=== PATIENT | female | born 1985 | race African-American/Black ===

== ENCOUNTER 2017-01-21 20:38 | Emergency (ER) | payer OTHER ==
[2017-01-21 20:57] VITALS: BP 119/72
--- NOTE | 2017-01-21 21:19 | UC ---
Skin Complaint HPI - HPI Summary HPI Summary: Pt presents with c/o dry, patchy area of skin under left eye. Pt reports that she is new to area and noticed that her skin has been very dry and itchy since moving to the area. Pt has history of eczema - History of Current Complaint Chief Complaint: UCEye Time Seen by Provider: 01/21/17 20:46 Stated Complaint: LEFT EYE COMPLAINT Hx Obtained From: Patient Hx Last Menstrual Period: 01/22/17 ?: No Onset/Duration: Sudden Onset, Lasting Weeks, Still Present, Worse Since - onset Skin Exposure Onset/Duration: Weeks Ago Timing: Constant Onset Severity: Mild Current Severity: Mild Location: Face Alleviating Factor(s): Unknown Associated Signs & Symptoms: Positive: Rash Related History: Possible Reaction to: Environmental Exposure - Allergy/Home Medications Allergies/Adverse Reactions: Allergies Allergy/AdvReac Type Severity Reaction Status Date / Time Penicillins Allergy Severe migranes Verified 01/21/17 20:49 Home Medications: Home Medications Albuterol HFA INHALER* [Ventolin HFA Inhaler*] 2 puff INH Q6H PRN 01/21/17 [ History Confirmed 01/21/17] Drospirenone-Ethinyl Estradiol [Loryna 3-0.02 mg] 1 tab PO DAILY 01/21/17 [ History Confirmed 01/21/17] Review of Systems Constitutional: Negative Skin: Rash Eyes: Negative ENT: Negative Respiratory: Negative Cardiovascular: Negative Gastrointestinal: Negative Genitourinary: Negative Motor: Negative Neurovascular: Negative Musculoskeletal: Negative Neurological: Negative Psychological: Negative Is Patient Immunocompromised?: No All Other Systems Reviewed And Are Negative: Yes PMH/Surg Hx/FS Hx/Imm Hx Previously Healthy: Yes - Surgical History Surgical History: Yes Surgery Procedure, Year, and Place: TONSILLECTOMY. WISDOM THEETH EXTRACTIONS - Family History Known Family History: Positive: Cardiac Disease - Social History Occupation: Employed Full-time Lives: Alone Alcohol Use: Occasionally Substance Use Type: None Smoking Status (MU): Never Smoked Tobacco Have You Smoked in the Last Year: No Physical Exam Triage Information Reviewed: Yes Appearance: Well-Appearing Vital Signs: Initial Vital Signs Temp 98.1 F 01/21/17 20:50 Pulse 70 01/21/17 20:50 Resp 20 01/21/17 20:50 BP 119/72 01/21/17 20:50 Pulse Ox 100 01/21/17 20:50 Vital Signs Reviewed: Yes Eye Exam: Normal Neck exam: Normal Respiratory Exam: Normal Cardiovascular Exam: Normal Musculoskeletal Exam: Normal Neurological Exam: Normal Psychological Exam: Normal Skin Exam: Other - dry , patchy, flaky area ~ 2cm X 2cm under left eye Course/Dx - Differential Diagnoses - Skin Complaint Differential Diagnoses: Eczema, Tinea, Other - Dermatitis - Diagnoses Provider Diagnoses: dermatitis. eczema exacerbation Discharge - Discharge Plan Condition: Stable Disposition: HOME Prescriptions: Hydrocortisone 0.5% OINT* 1 applic TOPICAL BID #1 tube Patient Education Materials: Dermatitis (ED) Referrals: Sherrell Castillo [Medical Doctor] - As Soon As Possible Analy Gonzalez NP [Nurse Practitioner] - If Needed Additional Instructions: Dental referral: Dr. Stan Harrington [address] [place] [address] Our Hours of operation are: Wednesday 7:00 AM 5:00 PM Wednesday 7:00 AM 4:00 PM For an appointment please call [phone]
== END 2017-01-21 21:34 | disposition home or self-care (01) ==
LOC: UCCORT 20:38
DX: L30.8 Other specified dermatitis (principal); Z88.0 Allergy status to penicillin
CPT/HCPCS: 99202; G0463

== ENCOUNTER 2018-08-01 10:38 | Observation (INO) | payer OTHER ==
[2018-08-01] MEDS ORDERED: NS 0.9% 1000 ML** 1,000 ML IV ONE (11:06)
--- NOTE | 2018-08-01 11:09 | ED ---
Neurological HPI - HPI Summary HPI Summary: Patient is a 33 y/o female who presents to the ED c/o LUE numbness. At 6:30 this morning she woke up and noticed that her LUE was numb. Patient initially thought she slept in an awkward position, however the numbness did not resolve. 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 Patient also c/o dull mid-sternal CP rated a 5/10 in severity, and had some numbness and shooting pains down her LLE. She denies any difficulty ambulating or neck pain. She notes that shes had numbness in the past but not to this extent. - History of Current Complaint Chief Complaint: EDChestPainROMI Stated Complaint: NUMBNESS IN LEFT ARM AND CHEST PAIN PER PT Time Seen by Provider: 08/01/18 10:55 Hx Obtained From: Patient Hx Last Menstrual Period: 01/22/17 Onset/Duration: Sudden Onset, Started hours ago - 6:30 this morning, Still Present Timing: Constant Current Severity: Moderate Neurological Deficit Location: LUE, LLE Pain Intensity: 5 Pain Scale Used: 0-10 Numeric Character: Weak, Numbness/Tingling Aggravating: Nothing Alleviating: Nothing Associated Signs and Symptoms: Negative: Neck Pain/Stiffness - Allergy/Home Medications Allergies/Adverse Reactions: Allergies Allergy/AdvReac Type Severity Reaction Status Date / Time Penicillins Allergy Headache Verified 08/01/18 11:21 PMH/Surg Hx/FS Hx/Imm Hx Respiratory History: Reports: Hx Asthma Sensory History: Reports: Hx Contacts or Glasses - Surgical History Surgery Procedure, Year, and Place: TONSILLECTOMY. WISDOM THEETH EXTRACTIONS Infectious Disease History: No Infectious Disease History: Denies: Traveled Outside the [place] in Last 30 Days - Family History Known Family History: Positive: Cardiac Disease - Social History Alcohol Use: Occasionally Hx Substance Use: No Substance Use Type: Reports: None Hx Tobacco Use: No Smoking Status (MU): Never Smoked Tobacco Have You Smoked in the Last Year: No Review of Systems Positive: Chest Pain Positive: Myalgia - shooting pains down LLE. Negative: Other - neck pain Neurological: Other - NEGATIVE: difficulty ambulating Positive: Weakness - LUE and LLE, Numbness - LUE and LLE All Other Systems Reviewed And Are Negative: Yes Physical Exam - Summary Physical Exam Summary: VITAL SIGNS: Reviewed. GENERAL: Patient is a well-developed and nourished FEMALE who is lying comfortable in the stretcher.Patient is not in any acute respiratory distress. HEAD AND FACE: No signs of trauma. No ecchymosis, hematomas or skull depressions. No sinus tenderness. EYES: PERRLA, EOMI x 2, No injected conjunctiva, no nystagmus. No photophobia. EARS: Hearing grossly intact. Ear canals and tympanic membranes are within normal limits. MOUTH: Oropharynx within normal limits. NECK: Supple, trachea is midline, no adenopathy, no JVD, no carotid bruit, no c- spine tenderness, neck with full ROM. No meningeal signs, no Kernig's or brudzinskis signs. CHEST: Symmetric, no tenderness at palpation LUNGS: Clear to auscultation bilaterally. No wheezing or crackles. CVS: Regular rate and rhythm, S1 and S2 present, no murmurs or gallops appreciated. ABDOMEN: Soft, non-tender. No signs of distention. No rebound no guarding, and no masses palpated. Bowel sounds are normal. EXTREMITIES: FROM in all major joints, no edema, no cyanosis or clubbing. NEURO: Alert and oriented x 3. Speech is normal and follows commands. Weakness and decreased sensation of LUE and LLE. SKIN: Dry and warm GCS: 15 Triage Information Reviewed: Yes Vital Signs On Initial Exam: Initial Vitals Temp Pulse Resp BP Pulse Ox 97.7 F 74 16 149/81 100 08/01/18 10:40 08/01/18 10:40 08/01/18 10:40 08/01/18 10:40 08/01/18 10:40 Vital Signs Reviewed: Yes Diagnostics - Vital Signs Vital Signs Temp Pulse Resp BP Pulse Ox 08/01/18 10:40 97.7 F 74 16 149/81 100 - Laboratory Result Diagrams: 08/01/18 12:18 08/01/18 12:18 Lab Statement: Any lab studies that have been ordered have been reviewed, and results considered in the medical decision making process. - Radiology CXR Radiology Interpretation Completed By: Radiologist Summary of Radiographic Findings: NO ACTIVE CARDIOPULMONARY DISEASE. ED physician reviewed radiology report. Brain MRI Radiology Interpretation Completed By: Radiologist Summary of Radiographic Findings: NORMAL BRAIN. ED physician reviewed radiology report. - CT Brain CT CT Interpretation Completed By: Radiologist Summary of CT Findings: NO ACUTE INTRACRANIAL PATHOLOGY. ED physician reviewed radiology report. Head CTA CT Interpretation Completed By: Radiologist Summary of CT Findings: Limited exam due to motion artifact without evidence for central intracranial large vessel occlusion or stenosis. ED physician reviewed radiology report. - EKG 10:54 Cardiac Rate: NL - 67 bpm EKG Rhythm: Sinus Rhythm ST Segment: Normal Summary of EKG Findings: T wave inversions in lead III NIH Scale - NIH Scale Level of Consciousness: Alert/Keenly Responsive Ask Patient the Month and His/Her Age: Both Correct Ask Pt to Open/Close Eyes and Supervisor Hanging And Trimming/Release Non-Paretic Hand: Both Correctly Best Gaze (Only Horizontal Eye Movement): Normal Visual Field Testing: No Visual Loss Facial Paresis-Pt to Smile & Close Eyes or Grimace Symmetry: Normal/Symmetrical Motor Function - Right Arm: No Drift-Holds 10 Seconds Motor Function - Left Arm: Drifts LT 10 seconds Motor Function - Right Leg: No Drift-Holds 10 Seconds Motor Function - Left Leg: Drifts LT 10 seconds Limb Ataxia-Must be out of Proportion to Weakness Present: Absent Sensory (Use Pinprick to Test Arms/Legs/Trunk/Face): Pinprick Less on Affected Best Language (Describe Picture, Name Items): No Aphasia Dysarthria (Read Several Words): Normal Extinction and Inattention: No Abnormality Total Score: 3 Course/Dx - Course Assessment/Plan: This patient is a 33-year-old female who presents to the emergency department with a chief complaint of having left-sided weakness. She reports that the symptoms started when she woke up at 6:30 in the morning. I discussed my physical exam, findings and test results with and Dr. Reyez from neurology who came, saw and examined the patient. He recommends the CT of the head and also a CTA head and neck. He was able to speak with a family physician for this patient who had done blood work about 2 years ago and he reported that the BUN and creatinine is within normal limits. Therefore he requested to do the CTA before lab results. Dr. Reyez discussed the benefits and risk of the CTA before labs with the patient and she accepted for the CT of the head and neck. Head CT impression: No acute interconnected pathology. Chest x-ray impression: no active cuddy pulmonary disease. Blood work without any significant abnormality except for carbon dioxide 16 anion gap is 12 total protein is 5.7 and troponin 1.8. Urinalysis is negative UTI. CT is negative. As discussed with Dr. Reyez he recommended for the patient to be admitted to the hospital services. Therefore,I discussed my physical exam and findings with Dr. Liang who accepted the patient for admission. The patient is hemodynamically stable alert and oriented 3. - Diagnoses Provider Diagnoses: Ischemic cerebrovascular accident (CVA) - Physician Notifications Discussed Care Of Patient With: Matthew Reyez Time Discussed With Above Provider: 11:06 Instructed by Provider To: Other - Dr. Reyez will see the pt in the ED. He recommends a head/neck CTA. At 11:22 Dr. Reyez said that if the brain CT is negative give ASA. At 11:58 Dr. Reyez said that if the CTA is negative then get an MRI. At 12:27 Dr. Reyez suggests getting and MRI, and admission for cardiac workup. At 13:19 Dr. Liang accepts pt for admission. - Critical Care Time Critical Care Time: 30-74 min - CCT is EXCLUSIVE of separately billable procedures. Discharge - Sign-Out/Discharge Documenting (check all that apply): Patient Departure - Admit Patient Received Moderate/Deep Sedation with Procedure: No - Discharge Plan Condition: Stable Disposition: ADMITTED TO [facility] - Billing Disposition and Condition Condition: STABLE Disposition: Admitted to [facility] - Attestation Statements Document Initiated by Scribe: Yes Documenting Scribe: Alicia Pham Provider For Whom Scribe is Documenting (Include Credential): Carlos Marcelo MD Scribe Attestation: IAlicia, scribed for Carlos Marcelo MD on 08/03/18 at 2128. Scribe Documentation Reviewed: Yes Provider Attestation: The documentation as recorded by the Alicia cooper accurately reflects the service I personally performed and the decisions made by me, Carlos Marcelo MD Status of Scribe Document: Viewed
[2018-08-01] MEDS ORDERED: Iohexol 350* (CONTRAST) 500 ML MDV IV ONE (11:28)
[2018-08-01] MEDS ORDERED: Aspirin 81 mg CHEW TAB* 81 MG TAB.CHEW PO ONE (11:28)
--- OUTSIDE RECORDS SUMMARY | 2018-08-01 12:16 | XMS REPORT | Continuity of Care Document ---
:1985 External Reference #:[id number] Author Name Tiana Bray NP Address [address] [place] [address] Care Team Providers Name Role Phone Alexander Sanchez MD Care Team Information Director Of Restaurants Unavailable Alexander Sanchez MD Primary Care Physician Unavailable Payers Date Identification Numbers Payment Provider Subscriber Effective: 2016 Policy Number: [id number] [facility] Cesilia Núñez Group Number: [id number] [address] PayID: [id number] [place] [address] Advance Directives Description No Information Available Problems Description No Information Family History Description No Information Available Social History Type Date Description Comments Sex Unknown Tobacco Use Start: Unknown Nonsmoker Smoking Status Reviewed: 07/22/18 Nonsmoker Allergies, Adverse Reactions, Alerts Date Description Reaction Status Severity Comments 04/12/2017 Penicillin migraine Active 10/18/2017 Pork Active 10/18/2017 Strawberries Active 10/18/2017 Peaches Active Medications Medication Date Status Form Strength Qnty SIG Indications Ordering Provider Tamiflu 07/22/ Active Capsules 75mg 10caps 1 by mouth Tiana Sanchez 2019 twice a day ALEXANDER Bray Elidel 12/01/ Active Cream 1% 30gm Apply thin L20.9 Kristen Torres layer to Kuldeep, 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 May resume after 1 week break. Ventolin HFA 12/01/ Active Aerosol 108(90Base 8gm take 1-2 J45.20 Tiana Sanchez 2018 ) mcg/Act puffs Asa inhaled WHEELCHAIR VAN DRIVER every 4 hours as needed for wheezing or tightness in the chest Nuvaring / Active Ring 0.12-0.015 insert one Unknown 0000 mg/24HR ring vaginally, retain x 3 weeks, then remove, allow withdrawal bleed, and reinsert new ring sun after menses No Active 04/12/ Hx Unknown Medications 2017 - 2016 Nicol 04/12/ Hx Tablets 3-0.02mg 84tabs one daily Alexander Flores 2016 - Laura 12/01/ MD 2017 Gianvi / Hx Tablets 3-0.02mg 84tabs 1 by mouth Alexander Flores 0000 - every day Laura 07/21/ MD 2018 Medications Administered in Office Medication Date Status Form Strength Qnty SIG Indications Ordering Provider Injection 11/22/ Administered Injection Unknown Subcutaneous Or 2018 Intramuscular Immunizations CPT Code Status Date Vaccine Lot # [id number] Given 12/01/2017 Tdap Tetanus, W Pertussis [id number] Given 12/01/2017 Hep A Adlt Immunization [id number] Vital Signs Date Vital Result Comment 07/22/2018 11:40am BP Systolic 110 mmHg BP Diastolic 68 mmHg Heart Rate 84 /min Body Temperature 97.5 F Respiratory Rate 16 /min Height 69 inches 5'9" Weight 264.12 lb BMI (Body Mass Index) 39.0 kg/m2 01/27/2018 11:08am BP Systolic 100 mmHg BP Diastolic 70 mmHg Heart Rate 62 /min Body Temperature 97.3 F Height 69 inches 5'9" Weight 251.00 lb BMI (Body Mass Index) 37.1 kg/m2 12/01/2017 2:56pm BP Systolic 112 mmHg BP Diastolic 82 mmHg Heart Rate 68 /min Body Temperature 98.1 F Height 69 inches 5'9" Weight 254.00 lb BMI (Body Mass Index) 37.5 kg/m2 10/18/2017 3:05pm BP Systolic 122 mmHg BP Diastolic 60 mmHg Heart Rate 70 /min Body Temperature 98.3 F Respiratory Rate 16 /min Height 69 inches 5'9" Weight 253.00 lb BMI (Body Mass Index) 37.4 kg/m2 04/12/2017 8:51am BP Systolic 118 mmHg BP Diastolic 82 mmHg Heart Rate 72 /min Body Temperature 99.1 F Respiratory Rate 16 /min Height 69 inches 5'9" Weight 249.50 lb BMI (Body Mass Index) 36.8 kg/m2 Results Test Date Facility Test Result H/L Range Note Flu A&B (Fma) 07/22/2018 [facility] Influenza A pos # ([id number])- - Influenza B neg O P: 01/27/2018 [facility] [place]: SEE RESULT 1 Giardia/Cryptospor Giardia/Cryptospor BELOW Screen Screen Laboratory test 01/27/2018 [facility] [place] Stool Culture SEE RESULT 2 finding BELOW Ova & Parasites Full 01/27/2018 [facility] [place] Parasitic Exam, Result See Comment 3 Laboratory test 2017 [facility] TSH 0.94 mIU/L 0.5 finding 0-6 .00 Comprehensive 2017 [facility] Sodium 139 mEq/L 134 Metabolic Prof -14 9 Potassium 4.6 mEq/L 3.6-5.5 Chloride 111 mEq/L 94-112 Carbon Dioxide 24 mEq/L 21-32 Glucose 99 mg/dL 70-105 BUN 12 mg/dL 6-26 Creatinine 1.0 mg/dL 0.6-1.4 BUN/Creat Ratio 12.0 CALC 8.0-36.0 Calcium 9.9 mg/dL 8.6-10.2 Total Protein 7.2 g/dL 6.4-8.3 Albumin 4.4 g/dL 3.8-5.5 Globulin 2.8 g/dL 2.0-4.8 A/G Ratio 1.6 CALC 0.6-2.3 Alk. Phosphatase 66 U/L 30-110 Alt (SGPT) 15 U/L 7-35 Ast (Sgot) 20 U/L 5-34 Total Bilirubin 0.6 mg/dL 0.2-1.3 GFR Non- >60 ml/min/1.73m^ >=60 GFR >60 ml/min/1.73m^ >=60 Lipid Profile 2017 [facility] Cholesterol 269 mg/dL High 120- 200 Triglycerides 126 mg/dL 30-200 HDL Cholesterol 78 mg/dL 30-85 LDL (Calculated) 166 CALC High 0-129 VLDL Cholesterol 25 mg/dL 0-50 HDL Risk Factor 3.4 CALC 0.0-4.4 Complete Blood Count 2017 [facility] WBC 5.2 x10^3/UL 3.6- 9.6 RBC 4.69 x10^6/UL 3.90-5.70 HGB 12.8 g/dL 12.1-17.2 HCT 39 % 36-50 MCV 82.0 fL Low 82.2-97.4 MCH 27.3 pg Low 27.6-33.3 MCHC 33.2 g/dL 33.0-35.5 RDW 13.4 % 11.6-13.7 PLT 252 x10^3/UL 150-400 MPV 7.6 fL 7.4-10.4 Gran # 2.9 x10^3/UL 1.5-7.2 Lymph# 2.0 x10^3/UL 0.7-4.9 [place]# 0.3 x10^3/UL 0.1-0.9 Gran % 54.5 % 42.2-75.2 Lymph % 39.2 % 20.5-51.1 [place]% 6.3 % 1.7-9.3 1 SEE RESULT BELOW Name: CESILIA NÚÑEZ : [address]: Jennifer Duron NP Acct: [id number] Unit: [id number] AGE: 32 Location: [facility] Re01/27/18 SEX: F Status: REG REF SPEC: [id number] MEEK: 01/27/[address]: Jennifer Duron NP REQ: [id number] RECD: 01/27/18 STATUS: JENNIFER ONEIL DR: No Primary Care Phys,NOPCP _ SOURCE: STOOL SPDESC: ORDERED: O P: Giar/Crypt Procedure Result Reported Site O P: Giardia/Cryptospor Screen Final 01/28/18941 ML Organism 1 Neg Cryptosporidium/Giardia * ML - Main Lab . END OF REPORT DEPARTMENT OF PATHOLOGY, [address] [place] [address] Sebastian Mckeon M.D. Director [facility] # [id number] 2 SEE RESULT BELOW Name: CESILIA NÚÑEZ : [address]: Jennifer Duron NP Acct: [id number] Unit: [id number] AGE: 32 Location: [facility] Re01/27/18 SEX: F Status: REG REF SPEC: [id number] MEEK: 01/27/18 DR: Jennifer Duron NP REQ: [id number] RECD: 01/27/18 STATUS: COMP _ SOURCE: STOOL SPDESC: ORDERED: Stool Culture Procedure Result Reported Site Stool Culture Final 01/29/18- 1222 ML Result No enteric pathogens isolated Testing for Salmonella, Shigella, Aeromonas, Plesiomonas, Yersinia and Campylobacter are included in a Stool Culture. Vibrio spp not routinely tested for in a stool culture. If testing is desired, please request specifically when placing test order. Sensitivities not routinely performed on stool isolates, as antibiotics may prolong the carriage rate of bacteria. Please contact the microbiology lab if sensitivities are required. Stool Specimen Description Final 01/27/18- 1940 ML Stool Color Brown Stool Form Formed Stool Consistency Soft Shiga Toxin 1 2 Final 01/31/18- 1252 ML Organism 1 Negative Shiga Toxin 1 2 Immunochromatographic Assay * ML - Main Lab . END OF REPORT DEPARTMENT OF PATHOLOGY, [address] [place] [address] Sebastian Mckeon M.D. Director [facility] # [id number] 3 SOURCE: STOOL PARASITIC EXAMINATION FINAL No parasites seen. Cryptosporidium, Cyclospora, and microsporidia are not readily detected by this method. Single negative specimen does not rule out parasitic infection. 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 Office Visit 12/01/2017 2:45p [facility] Office Kristen Carlos L20.9 Atopic dermatitis, Kuldeep, 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 unspecified Z23 Encounter for immunization J45.20 Mild intermittent asthma, uncomplicated Office Visit 10/18/2017 3:00p [facility] Office Alexander Flores M54.5 Low back pain MD Laura Office Visit 04/12/2017 9:00a [facility] Office Alexander Flores Z00.00 Encntr for MD Laura general adult medical exam w/o abnormal findings Z30.8 Encounter for other contraceptive management L27.2 Dermatitis due to ingested food Plan of Treatment 07/22/2018 - Tiana Bray, NPJ09.x2 Influenza due to identified novel influenza A virus with othComments:no school/work x 1 weekencouraged fluidsOTC medications - tylenol cold and flu with supplemental ibuprofen ED precautions reviewed handwashingFollow up:PRNJ45.20 Mild intermittent asthma, uncomplicatedComments:We discussed your starting to use your ventolin every 4 to 6 hours while you are awake fo the next 2to 3 days to keep your airways openAllNew Medication:Tamiflu 75 mg - 1 by mouth twice a dayComments:Medication Management Patient Understands medications he 's taking? Yes No Are there Barriers to Adherence? Yes No Has the patient been asked about herbal supplements and therapies, andOTC meds? Yes No Care Plan1. Patient has been queried about patient's goals/preferences and functional/ lifestyle goals at relevant visits. If relevant, describe: na2. Treatment goals asexplained to the patient: above3. Are there barriers to meeting treatment goals? Yes No IfYes, please describe:4. Self-Management goals as described to the patient: Yes NoAs always, tanyagly encourage a healthy diet and making physical activity a part of your every day life. If youhave questions about how or where to start, please contact the office.Follow up:Please schedule a full annual visit at your earliest convenience Last appointment with : 09/2017
--- OUTSIDE RECORDS SUMMARY | 2018-08-01 12:16 | XMS REPORT | Continuity of Care Document ---
:1985 External Reference #:[id number] Author Name Tiana Bray NP Address [address] [place] [address] Care Team Providers Name Role Phone Alexander Sanchez MD Care Team Information Program Strategist Unavailable Alexander Sanchez MD Primary Care Physician Unavailable Payers Date Identification Numbers Payment Provider Subscriber Effective: 2016 Policy Number: [id number] [facility] Cesilia Núñez Group Number: [id number] [address] PayID: [id number] [place] [address] Advance Directives Description No Information Available Problems [...] L20.9 Kristen Torres 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 May resume after 1 week break. Ventolin HFA 12/01/ Active Aerosol 108(90Base 8gm take 1-2 J45.20 Tiana Sanchez 2018 ) mcg/Act puffs Asa inhaled FIELD SUPPORT REP every 4 hours as needed for wheezing [...] CPT Code Status Date Vaccine Lot # [id number] Given 12/01/2017 Tdap Tetanus, W Pertussis [id number] Given 12/01/2017 Hep A Adlt Immunization [id number] Vital Signs Date Vital Result Comment 07/22/2018 [...] Date Facility Test Result H/L Range [place] [facility] [place] RESULT 1 Giardia/Cryptospor 8 Giardia/Crypto BELOW Screen spor Screen Laboratory test [facility] Stool Culture SEE RESULT 2 finding 8 BELOW Ova & Parasites [facility] Parasitic See Comment 3 Full 8 Exam, Result Laboratory test [facility] TSH 0.94 mIU/L 0.50-6.00 finding 7 Comprehensive [facility] Sodium 139 mEq/L 134-149 Metabolic Prof 7 Potassium 4.6 mEq/L 3.6-5.5 Chloride 111 mEq/L [...] GFR >60 ml/min/1.73m^ >=60 Lipid Profile 2017 [facility] Cholesterol 269 mg/dL High 120- 200 Triglycerides 126 mg/dL 30-200 HDL Cholesterol 78 mg/dL 30-85 LDL (Calculated) 166 CALC High 0-129 VLDL Cholesterol 25 mg/dL 0-50 HDL Risk Factor 3.4 CALC 0.0-4.4 Complete Blood Count 2017 [facility] WBC 5.2 x10^3/UL 3.6- 9.6 RBC 4.69 x10^6/UL 3.90-5.70 HGB 12.8 g/dL 12.1-17.2 HCT 39 % 36-50 MCV 82.0 fL Low 82.2-97.4 MCH 27.3 pg Low 27.6-33.3 MCHC 33.2 g/dL 33.0-35.5 RDW 13.4 % 11.6-13.7 PLT 252 x10^3/UL 150-400 MPV 7.6 fL 7.4-10.4 Gran # 2.9 x10^3/UL 1.5-7.2 Lymph# 2.0 x10^3/UL 0.7-4.9 [place]# 0.3 x10^3/UL 0.1-0.9 Gran % 54.5 % 42.2-75.2 Lymph % 39.2 % 20.5-51.1 [place]% 6.3 % 1.7-9.3 1 SEE RESULT BELOW Name: CESILIA NÚÑEZ : [address]: Jennifer Duron NP Acct: [id number] Unit: [id number] AGE: 32 Location: [facility] Re01/27/18 SEX: F Status: REG REF SPEC: [id number] MEEK: 01/27/[address]: Jennifer Duron NP REQ: [id number] RECD: 01/27/18 STATUS: JENNIFER ONEIL DR: Rachel Primary Care Phys,NOPCP _ SOURCE: STOOL SPDESC: ORDERED: O P: Giar/Crypt Procedure Result Reported Site O P: Giardia/Cryptospor Screen Final 01/28/18941 ML Organism 1 Neg Cryptosporidium/Giardia * ML - Main Lab . END OF REPORT DEPARTMENT OF PATHOLOGY, [address] [place] [address] Sebastian Mckeon M.D. Director [facility] # [id number] 2 SEE RESULT BELOW Name: CESILIA NÚÑEZ : [address]: Jennifer Duron NP Acct: [id number] Unit: [id number] AGE: 32 Location: [facility] Re01/27/18 SEX: F Status: REG REF SPEC: [id number] MEEK: 01/27/[address]: Jennifer Duron NP REQ: [id number] RECD: 01/27/18 STATUS: COMP _ S[facility] ORDERED: Stool Culture Procedure Result Reported Site [...] Shiga Toxin 1 2 Immunochromatographic Assay * - Main Lab . END OF REPORT DEPARTMENT OF PATHOLOGY, [address] [place] [address] Sebastian Mckeon M.D. Director [facility] # [id number] 3 SOURCE: STOOL PARASITIC EXAMINATION FINAL No parasites seen. Cryptosporidium, Cyclospora, and microsporidia are not readily detected by this method. Single negative specimen does not rule out parasitic infection. Test Performed by: [address] [address] Procedures Date Code Description Status 11/22/2017 20773 Injection Subcutaneous Or Intramuscular Completed 04/12/2017 62147 [facility] Completed Encounters Type Date Location Provider Dx Diagnosis Office Visit 01/27/2018 [facility] GABRIELA Shane R19.7 Diarrhea, 11:15a unspecified Office Visit 12/01/2017 [facility] Kristen Carlos L20.9 Atopic dermatitis, 2:45p ALEXANDER Light unspecified Z23 Encounter for immunization J45.20 Mild intermittent asthma, uncomplicated Office Visit 10/18/2017 3:00p [facility] Office Alexander Flores M54.5 Low back pain MD Laura Office Visit 04/12/2017 9:00a [facility] Office Alexander Flores Z00.00 Encntr for MD Laura general adult medical exam w/o abnormal findings Z30.8 Encounter for other contraceptive management L27.2 Dermatitis due to ingested food Plan of Treatment 07/22/2018 - Tiana Bray, NPJ09.x2 Influenza due to identified novel influenza A virus with other respiratory manifestationsComments:no school/work x 1 weekencouraged fluidsOTC medications - tylenol cold and flu with supplemental ibuprofen ED precautions reviewed handwashingFollow up:PRNJ45.20 Mild intermittent asthma, uncomplicatedAllNew Medication:Tamiflu 75 mg - 1 by mouth twice a dayComments:Medication Management Patient Understands medications he 's taking? Yes No Are there Barriers to Adherence? Yes No Has the patient been asked about herbal supplements and therapies, andOTC meds? Yes No Care Plan1. Patient has been queried about patient's goals /preferences and functional/lifestyle goals at relevant visits. If relevant, describe: na2. Treatment goals asexplained to the patient: above3. Are there barriers to meeting treatment goals? Yes No IfYes, please describe:4. Self-Management goals as described to the patient: Yes NoAs always, doron encourage a healthy diet and making physical activity a part of your every day life. If youhave questions about how or where to start, please contact the office.Follow up:Please schedule a full annual visit at your earliest convenience Last appointment with : 09/2017
--- OUTSIDE RECORDS SUMMARY | 2018-08-01 12:16 | XMS REPORT | Continuity of Care Document ---
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 May resume after 1 week break. 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 as needed for wheezing [...] CPT Code Status Date Vaccine Lot # [id number] Given 12/01/2017 Tdap Tetanus, W Pertussis [id number] Given 12/01/2017 Hep A Adlt Immunization [id number] Vital Signs Date Vital Result Comment 07/22/2018 [...] Test Result H/L [place] [facility] [place]: [place]ULT 1 Giardia/Cryptospor 8 Giardia/Crypto BELOW Screen spor Screen Laboratory test [facility] [place] Stool Culture SEE RESULT 2 finding 8 BELOW Ova & Parasites [facility] [place] Parasitic See Comment 3 Full 8 Exam, Result Laboratory test [facility] TSH 0.94 mIU/L 0.50-6.00 finding 7 Comprehensive [facility] Sodium 139 mEq/L 134-149 Metabolic Prof 7 [...] >60 ml/min/1.73m^ >=60 Lipid Profile 2017 [facility] Cholesterol 269 mg/dL High 120- 200 Triglycerides 126 mg/dL 30-200 HDL Cholesterol 78 mg/dL 30-85 LDL (Calculated) 166 CALC High 0-129 VLDL Cholesterol 25 mg/dL 0-50 HDL Risk Factor 3.4 CALC 0.0-4.4 Complete Blood Count 2017 [facility] WBC 5.2 x10^3/UL 3.6- 9.6 RBC 4.69 x10^6/UL 3.90-5.70 HGB 12.8 g/dL 12.1-17.2 HCT 39 % 36-50 MCV 82.0 fL Low 82.2-97.4 MCH 27.3 pg Low 27.6-33.3 MCHC 33.2 g/dL 33.0-35.5 RDW 13.4 % 11.6-13.7 PLT 252 x10^3/UL 150-400 MPV 7.6 fL 7.4-10.4 Gran # 2.9 x10^3/UL 1.5-7.2 Lymph# 2.0 x10^3/UL 0.7-4.9 [place]# 0.3 x10^3/UL 0.1-0.9 Gran % 54.5 % 42.2-75.2 Lymph % 39.2 % 20.5-51.1 [place]% 6.3 % 1.7-9.3 1 SEE RESULT BELOW Name: CESILIA NÚÑEZ : [address]: Jennifer Duron NP Acct: [id number] Unit: [id number] AGE: 32 Location: [facility] Re01/27/18 SEX: F Status: REG REF SPEC: [id number] MEEK: 01/27/[address]: Jennifer Duron NP REQ: [id number] RECD: 01/27/18 STATUS: JENNIFER ONEIL DR: Rachel Primary Care Phys,NOPCP _ SOURCE: STOOL SPDESC: ORDERED: O P: Giar/Crypt Procedure Result Reported Site O P: Giardia/Cryptospor Screen Final 01/28/18941 ML Organism 1 Neg Cryptosporidium/Giardia * ML - Main Lab . END OF REPORT DEPARTMENT OF PATHOLOGY, [address] [place] [address] Sebastian Mckeon M.D. Director [facility] # [id number] 2 SEE RESULT BELOW Name: CESILIA NÚÑEZ : [address]: Jennifer Duron NP Acct: [id number] Unit: [id number] AGE: 32 Location: [facility] Re01/27/18 SEX: F Status: REG REF SPEC: [id number] MEEK: 01/27/[address]: Jennifer Duron NP REQ: [id number] RECD: 01/27/18 STATUS: COMP _ [facility]: ORDERED: Stool Culture Procedure Result [...] . END OF REPORT DEPARTMENT OF PATHOLOGY, [address] [place] [address] Sebastian Mckeon M.D. Director [facility] # [id number] 3 SOURCE: STOOL PARASITIC EXAMINATION FINAL No parasites seen. Cryptosporidium, Cyclospora, and microsporidia are not readily detected by this method. Single negative specimen does not rule out parasitic infection. Test Performed by: [address] [address] Procedures Date Code Description Status 11/22/2017 56490 Injection Subcutaneous Or Intramuscular Completed 04/12/2017 57201 [facility] Completed Encounters Type Date Location Provider Dx Diagnosis Office Visit 01/27/2018 [facility] Office GABRIELA Shane R19.7 Diarrhea, 11:15a unspecified Office Visit 12/01/2017 [facility] Office Kristen Carlos L20.9 Atopic dermatitis, 2:45p ALEXANDER Light unspecified Z23 Encounter for immunization J45.20 Mild intermittent asthma, uncomplicated Office Visit 10/18/2017 3:00p [facility] Office Alexander Flores M54.5 Low back pain MD Laura Office Visit 04/12/2017 9:00a [facility] Office Alexander Flores Z00.00 Encntr for MD [...] dayComments:Medication Management Patient Understands medications he 's taking ? Yes No Are there Barriers to Adherence? Yes No Has the patient been asked about herbal supplements and therapies, andOTC meds? Yes No Care Plan1. Patient has been queried about patient's goals/preferences and functional/lifestyle goals at relevant visits. If relevant, describe: na2. Treatment goals asexplained to the patient: above3. Are there barriers to meeting treatment goals? Yes No IfYes, please describe:4. Self- Management goals as described to the patient: Yes NoAs always, doron encourage a healthy diet and making physical activity a part of your every day life. If youhave questions about how or where to start, please contact the office.Follow up:Please schedule a full annual visit at your earliest convenience Last appointment with : 09/2017
[2018-08-01 12:48] LABS: ABS Basophils 0 10^3/ul (0-0.2); ABS Eosinophils 0 10^3/ul (0-0.6); ABS Lymphocytes 2.3 10^3/ul (1.0-4.8); ABS Monocytes 0.5 10^3/ul (0-0.8); ABS Neutrophils 3.5 10^3/ul (1.5-7.7); ABS Nucleated RBC 0 10^3/ul; Eosinophil % 0.3 %; Hematocrit 39 % (33-41); Hemoglobin 12.3 g/dL (12.0-16.0); Lymphocyte % 36.3 %; Mean Corpuscular HGB Conc 32 g/dL (31-36); Mean Corpuscular Hemoglobin 26 pg (27-31); Mean Corpuscular Volume 82 fL (80-97); Mean Platelet Volume 8.8 fL (7.4-10.4); Nucleated Red Blood Cells % 0.1; Platelet Count 244 10^3/uL (150-450); Red Blood Count 4.73 10^6 /uL (3.70-4.87); Red Cell Distribution Width 14 % (10.5-15); White Blood Count 6.4 10^3/uL (3.5-10.8)
[2018-08-01 12:56] LABS: INR 0.9 (0.77-1.02)
--- NOTE | 2018-08-01 13:03 | CONS ---
CONSULTATION REPORT: ADDENDUM: I just spoke to Dr. Bryant who notes that there was no clear occlusion , that there was some motion artifact on the CTA of head and neck, but that there was no clear large vessel occlusion. Her right carotid was smaller but he thought that this was just a developmental issue based on the left carotid feeding more of a distribution distally than the right carotid. We will follow up. Thank you for sharing her case. [id number]/[facility] #: [id number] CHARLEEN
[2018-08-01 13:11] LABS: Albumin 3.9 g/dL (3.2-5.2); Anion Gap 12 mmol/L (2-11); CO2 Carbon Dioxide 16 mmol/L (22-32); Chloride 110 mmol/L (101-111); Magnesium 1.9 mg/dL (1.9-2.7); Sodium 138 mmol/L (135-145)
[2018-08-01 13:17] LABS: ALT 17 U/L (7-52); AST 18 U/L (13-39); Albumin/Globulin Ratio 2.2 (1-3); Alkaline Phosphatase 52 U/L (34-104); BUN/Creatinine Ratio 8.2 (8-20); Blood Urea Nitrogen 8 mg/dL (6-24); Creatine Kinase 143 U/L (10-223); Globulin 1.8 g/dL (2-4); Glucose 87 mg/dL (70-100); Total Protein 5.7 g/dL (6.4-8.9)
[2018-08-01 13:19] LABS: Urine Appearance Clear; Urine Bilirubin Negative (Negative); Urine Blood Negative (Negative); Urine Color Straw; Urine Glucose Negative (Negative); Urine Ketones Negative (Negative); Urine Nitrite Negative (Negative); Urine Protein Negative (Negative); Urine Specific Gravity 1.025 (1.010-1.030); Urine Urobilinogen Negative (Negative)
[2018-08-01 13:19] LABS: CKMB ng/mL 1.2 ng/mL (0.6-6.3)
[2018-08-01 13:22] LABS: HCG Pregnancy < 0.60 mIU/mL
[2018-08-01 13:37] LABS: TSH (Thyroid Stimulating Horm) QNS mcIU/mL (0.34-5.60)
--- NOTE | 2018-08-01 14:01 | CONS ---
CONSULTATION REPORT: DATE OF CONSULT: 08/01/18 PATIENT OF: Dr. Sanchez and Dr. 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 She came to the ER and who was found to have some left leg weakness as well. She had also complaint of a dull midsternal chest pain, 5/10 in severity. She denied any difficulty walking, neck pain, or headaches. No visual symptoms, no speech problems. She has had some numbness in the past, but this was somehow different. She has had no prior weakness and no significant headaches in the past. She is in good general healthy. PAST SURGICAL HISTORY: She has had her tonsils out and wisdom teeth removed in the past. MEDICATIONS: Her only medicine is control. SOCIAL HISTORY: She does not smoke, use drugs and drinks infrequently. FAMILY HISTORY: There is a family history for cardiac disease. REVIEW OF SYSTEMS: All 14 spheres is negative other than HPI. PHYSICAL EXAM: Temperature 97.7, pulse 74, respiratory rate 16, blood pressure 149/81. She is alert and oriented with normal speech and comprehension including on NIH Stroke Scale testing. Face is symmetric. Cranial nerves II through XII were normal. There is no visual field disturbances to confrontation. Strength was normal on the right. When I first saw her, she had a pronator drift on the left and 5-/5 weakness on the left arm and leg. There is some giveaway component in the left arm and there is some weakness in the leg, but there was also a positive Walker's reflex were 1 and equal. Downgoing toes. When I first saw her at 1115 when she was on the CT scan table , currently she appears to have full strength in the left leg, but still has slight pronator drift and trace 5-/5 strength in the left hand and arm, but there is still a slight giveaway component. Reflexes 2 and equal. Toes were downgoing. Her NIH Stroke Scale was 3 for left arm and leg weakness with some uncertainty in terms of reaching for objects, [id number] on the left side, but this is now improved and is a 2. Her CT scan I reviewed and was normal. I called her doctor's office when she was on the CT table and got a BUN and creatinine from March 2017 that was normal. So we proceeded with the CTA since the main issue was, if she had a large vessel occlusion even though this was unlikely, if this is possible she will be a candidate and is being read urgently as we speak. Her labs are pending other than a glucose of 82. She needs to be worked up at first for acute stroke. I wonder whether there is a component of functional overlay, but it is hard to know if there is an organic component to it as well. She will need an MRI scan and cardiac echo. I have discussed with her the issues of the CTA and if she had a large vessel occlusion what the procedure would be. Depending on what her workup evolves, we will have to make a decision on of how far to pursue the workup in terms of the extent of the cardiac monitoring. Thank you for sharing her case. ADDENDUM TO CONSULTATION REPORT: I just spoke to Dr. Bryant who notes that there was no clear occlusion, that there was some motion artifact on the CTA of head and neck, but that there was no clear large vessel occlusion. Her right carotid was smaller but he thought that this was just a developmental issue based on the left carotid feeding more of a distribution distally than the right carotid. We will follow up. Thank you for sharing her case. [id number]/[facility] #: [id number]/[facility] #: [id number] CHARLEEN
[2018-08-01] MEDS ORDERED: Acetaminophen TAB* 325 MG PO PRN (14:19)
[2018-08-01] MEDS ORDERED: Al Hydrox/Mg Hydrox/Simet LIQ* 30 ML UDC PO PRN (14:19)
[2018-08-01] MEDS ORDERED: Albuterol HFA INHALER* 8 gm MDI INH PRN (14:43)
[2018-08-01] MEDS ORDERED: ETONOGESTREL VAGINAL SCH (14:45)
[2018-08-01] MEDS ORDERED: ETHINYL ESTRADIOL VAGINAL SCH (14:45)
--- NOTE | 2018-08-01 15:50 | HP ---
CC: Dr. Alexander Sanchez HISTORY AND PHYSICAL: ADDENDUM: PRIMARY CARE PROVIDER: Dr. Alexander Sanchez. The patient was seen and examined in the emergency room and the case was reviewed and discussed with Mera Aguilar, physician assistant boiler operator and also with neurologist, Dr. Reyez. HISTORY OF PRESENT ILLNESS: Mrs. David is a 33-year-old lady with a past medical history of asthma, who presented to the emergency room with complaints of left- sided weakness that she noticed when she woke up. 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 In the emergency room, she also complained of left leg weakness. Her CT of the brain was negative as well as her CT of the head, although that was a little limited due to motion artifact. Dr. Reyez discussed the CT with Dr. Bryant and he felt that there was no clear large-vessel occlusion. The plan for the patient should be admitted for further monitoring. PHYSICAL EXAMINATION GENERAL: The patient is an obese young lady, sitting up in the bed, in no acute distress. VITAL SIGNS: The patient's vital signs include a temperature of 97.7, heart rate 63, respiratory rate is 21, oxygen saturation is 100% on room air, blood pressure is 139/77. CVS: Normal S1 and S2. Regular rate and rhythm. CHEST: Breath sounds bilaterally with no added sounds. NEUROLOGIC: She is alert and oriented x3. Her face is symmetric. Cranial nerves II through XII are grossly intact and she has 5/5 strength on the all 4 limbs. On neurology examination, there was a description of a pronator drift on the left, but I cannot reproduce this finding. Dr. Reyez wondering if there was a component of functional overlay causing her symptoms. ASSESSMENT/PLAN: The patient will be monitored on telemetry with neuro checks and we will continue the workup with MRI of the brain and an echocardiogram with bubble study. The patient has a NuvaRing and if she is proved to have an ischemic event, we will have to look into different control modalities. [id number]/[facility] #: [id number] MTDAlan
[2018-08-01] MEDS: Enoxaparin(*) 40 MG/0.4 ML SYR SUBCUT SCH (17:07)
--- NOTE | 2018-08-01 18:11 | HP ---
ATTENDING ADDENDUM NOW INCLUDED ON THIS REPORT CC: Dr. Alexander Sanchez, Dr. Reyez * HISTORY AND PHYSICAL: DATE OF ADMISSION: 08/01/18 PRIMARY CARE PHYSICIAN: Dr. Alexander Sanchez. OTHER PROVIDERS: Dr. Reyez. ATTENDING PHYSICIAN: Dr. Gómez Gaines * (dictated by RACHANA Dexter). PROVIDER: RACHANA Dexter CHIEF COMPLAINT: Left upper extremity weakness and paresthesia, chest pain. HISTORY OF PRESENT ILLNESS: Gera David is a 33-year-old black female with past medical history of asthma, who presented to the emergency department via private vehicle with complaints of left arm weakness and numbness that started when she woke up this morning. Originally, the patient believes that she had just slept on her arm causing this numbness, but as the morning went on, she continued to have the numbness. By the time she got to work approximately 2 to 3 hours later, she was noticing left arm weakness. She was having difficulty typing at work and hemmer lockstitch strength was decreased while trying to hold her coffee. She then proceeded to drive herself to the emergency department on recommendation of her sister, who is a nurse practitioner. She has not noticed any gait disturbances. She did begin to notice some left leg pain and left arm pain, which she described as "tingling." When she arrived to the emergency department, she began having midsternal chest pain, which did not radiate to her arms, neck, or jaw. She did not have associated diaphoresis or dyspnea. She did note that she felt tachycardic without palpitations. She also notes that she began experiencing left-sided facial numbness when she arrived to the emergency department. At the time of evaluation, her chest pain was decreased and her left-sided facial numbness was decreased. Additionally, the pain in her left leg and arm were decreased, but the left arm continued to feel weak and numb. Additionally , she does note that she gets what she describes as migraines every month. She has strong headaches that begin at the base of her neck and then spread upwards through her skull. They are not associated with visual changes, nausea, or vomiting. She notes that she does frequently have neck soreness and tightness and does have increased stress in the workplace. She does have a history of generalized anxiety disorder, which she was previously treated with the medication that she does not remember. She does follow with a counselor and actually has a followup appointment scheduled for tomorrow. ED COURSE: Vital signs when the patient arrived to the emergency department, temperature 97.7 degrees Fahrenheit, pulse 74, respiration rate 16, oxygen 100% on room air. Blood pressure 149/81. Pertinent labs in the ED include troponin of 0.0, 0.01 on second reading. White blood cell 6.4, hemoglobin 12.3, hematocrit 39, platelet 244. The patient was given 324 mg of aspirin in the emergency department as well as 1 L of normal saline. The hospitalists were then asked to evaluate the patient for admission. PAST MEDICAL HISTORY: 1. Asthma, mild intermittent. 2. Generalized anxiety disorder. PAST SURGICAL HISTORY: Tonsillectomy, wisdom teeth extraction. FAMILY HISTORY: Father is living at age 64 with history of hypertension and diabetes mellitus type 2. Mother is living at age 64 with history of hypothyroidism. SOCIAL HISTORY: The patient is not and does not have any children. 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 She denies tobacco use and illicit drug use. She drinks alcohol approximately once per week. She reports that her sister, Eli, would be her surrogate medical decision maker if needed. Phone number is [phone]. ALLERGIES: PENICILLINS (reaction is headache). HOME MEDICATIONS: 1. Ventolin 1 inhaled puff q.6 hours p.r.n. wheezing. 2. NuvaRing 1 vaginal ring monthly. REVIEW OF SYSTEMS: An 11-system review of systems was completed and all pertinent positives and negatives are in the HPI. PHYSICAL EXAMINATION GENERAL: Young, black, obese female sitting comfortably in hospital stretcher appearing in no acute distress. HEENT: Head: Normocephalic and atraumatic. Eyes: PERRLA, sclerae anicteric, visual chau full to confrontation, no nystagmus. ENT: Mucous membranes moist. NECK: Supple without JVD. RESPIRATORY: Lungs are clear to auscultation without adventitious lung sounds. Respirations are symmetrical. CARDIAC: Regular rate and rhythm without murmurs, rubs, or gallops. ABDOMEN: Abdomen is soft, nontender, nondistended. EXTREMITIES: No clubbing or edema. NEURO: Cranial nerves II through XII are intact grossly. Gait is normal. There is some weakness to the left lower extremity. 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 Negative pronator drift. Sensation to light touch is not equal bilaterally, there is an inconsistent distribution of sensation across the face, and diminished sensation to light touch on the left upper extremity. SKIN: Warm, dry, and intact. PSYCH: Mood and affect are euthymic. DIAGNOSTIC STUDIES/LAB DATA: White blood cell count 6.4, hemoglobin 12.3, hematocrit 39, platelet count 234. Sodium 138, potassium 4, chloride 110, carbon dioxide 16, BUN 8, creatinine 0.97 , glucose 87. Troponin 0.1, 0.0. EKG on 08/01/18: Normal sinus rhythm, rate 67 beats per minute. There were [address] elevations in V2 and V3 though likely consistent with J point. T-wave inversion in lead III. Normal axis. Normal R progression. No previous study for comparison. Chest x-ray on 08/01/18. Impression: "No active cardiopulmonary disease." Brain CT on 08/01/18. Impression: "No acute intracranial pathology." Head CTA on 08/01/18. Impression: "Limited exam due to motion artifact without evidence for a central intracranial large-vessel occlusion or stenosis." ASSESSMENT AND PLAN: Gera David is a 33-year-old female with past medical history of asthma and generalized anxiety disorder who presents to the emergency department complaining of left-sided weakness and paresthesias. The patient will be admitted in observation for: 1. Unilateral paresthesias/weakness: Transient ischemic attack workup will be initiated. Dr. Reyez has been consulted. Fasting LDL, hemoglobin A1c, echocardiogram with bubble study ordered. TSH has been ordered as well. The patient has already been ruled out for a large-vessel stenosis and intracranial hemorrhage on CT brain and head CTA. The patient will be receiving an MRI later this evening. Given that the head CTA did have an artifact, Dr. Arredondo believes that ultrasound of the carotids should be ordered if the MRI has any signs of ischemia. Otherwise, he believes that if there are no signs of ischemia, then the ultrasound of the carotids do not need to be completed. The patient has already received loading dose of aspirin and 81 mg will be continued during her stay. She received a nursing swallow evaluation at that same emergency department in the past. She will receive neuro checks every 2 hours today and then daily afterwards. It is possible that these symptoms are related to a migraine as the patient does have history of headaches. It is also possible that her history of headaches are related to stress or neck musculature tension and are not migraines. Nonetheless, this could be an atypical presentation of a migraine. Additionally, given the patient has history of generalized anxiety disorder, these symptoms could be related to a panic attack. If the MRI does show signs of ischemia, it is recommended that the patient follow up with her PCP or day habilitation specialist regarding change in control as the patient is currently on an estrogen-containing control, NuvaRing. 2. Chest pain. The patient arrived to the emergency department with chest pain and troponins have been negative thus far. We will continue to trend. It is possible that this is also a component of her anxiety. She does have some EKG changes, but they are not consistent with coronary artery ischemia and are consistent with J point. However, a repeat EKG will be ordered. There are no previous EKGs in the EMR for comparison. Additionally, the patient will be placed on telemetry which can likely be discontinued tomorrow if normal overnight. 3. Asthma. The patient has mild intermittent asthma, which is well controlled as the patient states. Continue p.r.n. Ventolin. 4. Fluids, electrolytes, nutrition. The patient is currently n.p.o. until results of MRI. Electrolytes are within normal limits and maintenance normal saline fluids will be continued while the patient is n.p.o. 5. Code status. The patient is full code. 6. DVT prophylaxis. The patient has a DVT risk of 2 and has been placed on daily Lovenox. 7. Disposition. Admitted in observation. 8. Clinical screening. Sickle cell screening has been ordered as it is indicated. TIME SPENT: Approximately 50 minutes was spent on this admission, approximately half of the time was spent at bedside. This case was reviewed by my attending, Dr. Gómez Gaines, and she agrees with this plan of care. RACHANA DEXTER ADDENDUM: PRIMARY CARE PROVIDER: Dr. Alexander Sanchez. The patient was seen and examined in the emergency room and the case was reviewed and discussed with Mera Aguilar, physician lab assistant and also with neurologist, Dr. Reyez. HISTORY OF PRESENT ILLNESS: Mrs. David is a 33-year-old lady with a past medical history of asthma, who presented to the emergency room with complaints of left- sided weakness that she noticed when she woke up. It was described that her left arm and hand were numb and she also had decreased hemmer lockstitch strength. In the emergency room, she also complained of left leg weakness. Her CT of the brain was negative as well as her CT of the head, although that was a little limited due to motion artifact. Dr. Reyez discussed the CT with Dr. Bryant and he felt that there was no clear large-vessel occlusion. The plan for the patient should be admitted for further monitoring. PHYSICAL EXAMINATION GENERAL: The patient is an obese young lady, sitting up in the bed, in no acute distress. VITAL SIGNS: The patient's vital signs include a temperature of 97.7, heart rate 63, respiratory rate is 21, oxygen saturation is 100% on room air, blood pressure is 139/77. CVS: Normal S1 and S2. Regular rate and rhythm. CHEST: Breath sounds bilaterally with no added sounds. NEUROLOGIC: She is alert and oriented x3. Her face is symmetric. Cranial nerves II through XII are grossly intact and she has 5/5 strength on the all 4 limbs. On neurology examination, there was a description of a pronator drift on the left, but I cannot reproduce this finding. Dr. Reyez wondering if there was a component of functional overlay causing her symptoms. ASSESSMENT/PLAN: The patient will be monitored on telemetry with neuro checks and we will continue the workup with MRI of the brain and an echocardiogram with bubble study. The patient has a NuvaRing and if she is proved to have an ischemic event, we will have to look into different control modalities. GÓMEZ Gaines MD [id number]/CPS #: [id number]/CPS #: [id number] CHARLEEN
[2018-08-02] MEDS: NS 0.9% 1000 ML** 1,000 ML IV SCH ×2 (05:42→11:13)
[2018-08-02] MEDS ORDERED: Aspirin 81 mg CHEW TAB* 81 MG TAB.CHEW PO SCH (09:00)
--- NOTE | 2018-08-02 09:55 | ECHO ---
Patient: CESILIA NÚÑEZ [facility] Rec#: [id number] : 1985 Date: 08/02/2018 Age: 33y Height: 175.26 cm / 69.0 in Weight: 113.4 kg / 249.9 lbs Sex: F BSA: 2.27 Room#: [facility] Admit Date#: 08/01/2018 Type: Inpatient Referring: Mera Aguilar Reading: Markel Gilbert MD Patient Centered Care Specialist: Martina Floyd,ELDACS,RDMS CC: Alexander Durham Transthoracic Echocardiogram Indication: TIA BP: 133/66 HR: 69 Rhythm: NSR Findings History: Previously healthy Technical Comments: The study quality is good. Left Ventricle: The left ventricular chamber size is normal. There is no left ventricular hypertrophy. Global left ventricular wall motion and contractility are within normal limits. There is normal left ventricular systolic function. The estimated ejection fraction is 50-55%. Normal left ventricular diastolic filling is observed. Left Atrium: The left atrial chamber size is normal. Right Ventricle: The right ventricular chamber size and systolic function are within normal limits. Right Atrium: The right atrial cavity size is normal. The bubble study is negative. A patent foramen ovale is not demonstrated with color Doppler and agitated contrast. Aortic Valve: The aortic valve is trileaflet. Systolic excursion of the aortic valve is normal. There is no evidence of aortic regurgitation. There is no evidence of aortic stenosis. Mitral Valve: The mitral valve leaflets are mildly thickened. There is no evidence of mitral regurgitation. There is no evidence of mitral stenosis. Tricuspid Valve: The tricuspid valve leaflets are normal. There is trace to mild tricuspid regurgitation. No pulmonary hypertension is noted. Pulmonic Valve: The pulmonic valve appears normal. There is a trace pulmonic regurgitation. Pericardium: There is no significant pericardial effusion. Aorta: The aortic root appears normal. There is no dilatation of the aortic arch. Pulmonary Artery: The main pulmonary artery appears normal. Venous: The inferior vena cava appears normal in size. There is a greater than 50% respiratory change in the inferior vena cava dimension. Contrast: Intravenous agitated saline contrast was used to assess intracardiac shunting. Images 1 and 2. Summary: There was not any prior study for comparison. Conclusions Global left ventricular wall motion and contractility are within normal limits. There is normal left ventricular systolic function. The estimated ejection fraction is 50-55%. A patent foramen ovale is not demonstrated with color Doppler and agitated contrast. There is no evidence of aortic stenosis. There is no evidence of mitral regurgitation. There is trace to mild tricuspid regurgitation. There is no significant pericardial effusion. Measurements Name Value Normal Range RVIDd (AP) 2D 3 cm (0.9 - 2.6) RVDdMajor (2D) 3.1 cm (2.2 - 4.4) RAd ISD 4CH 4.7 cm (3.4 - 4.9) RA (A4C)W 3.5 cm (2.9 - 4.6) IVSd (2D) 0.7 cm (0.6 - 1) LVPWd (2D) 1 cm (0.6 - 1) LVIDd (2D) 4.9 cm (3.6 - 5.4) LVIDs (2D) 3.1 cm - LV FS (2D) 35 % (25 - 45) Aortic Annulus 2 cm (1.4 - 2.6) Ao root diameter (2D) 2.8 cm (2.1 - 3.5) Ascending Ao 2.5 cm (2.1 - 3.4) Aortic arch 2.7 cm (1.8 - 3.4) LA dimension (AP) 2D 3.9 cm (2.3 - 3.8) LAd ISD 4CH 5.3 cm (2.9 - 5.3) LA ISD 4CH W 5 cm (2.5 - 4.5) Name Value Normal Range LA ESV SP 4CH (A/L) 66.12 ml - LA ESV SP 2CH (A/L) 54.88 ml - LA ESV BP (A/L) 61.13 ml - LA ESV BP (A/L) index 27 ml/m2 - LA ESV SP 4CH (MOD) 62.22 ml - LA ESV SP 2CH (MOD) 51.99 ml - Name Value Normal Range MV E-wave Vmax 1.2 m/sec - MV deceleration time 206 msec - MV A-wave Vmax 0.4 m/sec - MV E:A ratio 3 ratio - LV septal e' Vmax 0.14 m/sec - LV lateral e' Vmax 0.15 m/sec - LV E:e' septal ratio 9 ratio - LV E:e' lateral ratio 8 ratio - Name Value Normal Range AV Vmax 1.7 m/sec - AV VTI 34 cm - AV peak gradient 12 mmHg - AV mean gradient 6.7 mmHg - LVOT Vmax 1.5 m/sec - LVOT VTI 30 cm - LVOT peak gradient 9 mmHg - LVOT mean gradient 4 mmHg - DIMITRI Vmax 1.1 m/sec - Name Value Normal Range TR Vmax 2.6 m/sec - TR peak gradient 27 mmHg - RAP 3 mmHg - RVSP 30 mmHg - IVC diameter 1.7 cm - Name Value Normal Range PV Vmax 1.1 m/sec - PV peak gradient 5 mmHg -
[2018-08-02] MEDS: Enoxaparin(*) 40 MG/0.4 ML SYR SUBCUT SCH (13:35)
[2018-08-02 14:35] VITALS: BP 123/65
--- NOTE | 2018-08-03 01:25 | DS ---
CC: Dr. Alexander Sanchez; Dr. Matthew Reyez, Neurology * DISCHARGE SUMMARY: DATE OF ADMISSION: 08/01/18 DATE OF DISCHARGE: 08/02/18 PRIMARY CARE PROVIDER: Dr. Alexander Sanchez. MY ATTENDING: Dr. Alcala.* (DICTATED BY JONATAN DUONG NP) HOSPITAL COURSE: Please refer to admission H and P yesterday, but in short, Ms. David is a 33-year-old female patient whose only medical history is asthma. She presented to the emergency department with complaints of left upper extremity weakness and numbness described as tingling and then difficulty opening and closing her fist. The patient's symptoms persisted for several hours. 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 She drove herself to the emergency department for evaluation. She also endorsed some left leg pain and radiating arm pain as well. A code perales was called on the patient at admission and she was evaluated by Dr. Reyez. CT of the brain showed no acute ischemic attack. CTA showed no large vessel occlusion. She did receive full dose aspirin 324 mg. She had a swallow eval and neuro checks q.2 hours. The patient was admitted to observation for her symptoms of possible TBI versus CVA. The patient had followup MRI. MRI showed a completely normal brain with no ischemic changes. EKG was normal. Echocardiogram also was normal and did not show any patent foramen ovale. At this point, the patient was reevaluated this morning by Neurology, who recommended because of the patient's young age to not start on dual- antiplatelet therapy, but just to be discharged on aspirin. However, she will need a significant amount of followup. The patient's only possible risk factor for an embolic event is that she is on NuvaRing for control. The patient voluntarily removed her NuvaRing during this admission and will discuss with her belt measurer the utility of continuing hormonal therapy for control versus barrier method or IUD. DISCHARGE DIAGNOSES: 1. Unilateral weakness and paresthesias, possibility transient ischemic attack versus cerebrovascular accident. 2. Chest pain, atypical, noncardiac in nature. 3. History of asthma, stable. DISCHARGE MEDICATIONS: Include: 1. Aspirin 81 mg daily. 2. Albuterol inhaler 2 puffs q.6 hours as needed. REVIEW OF SYSTEMS: A 10-point review of systems today is negative. The patient has had essentially complete resolution of all her symptoms. PHYSICAL EXAMINATION: The patient is well appearing, well nourished, in no acute distress, young -[place]istani female. Blood pressure is 123/65, heart rate 66, respiratory rate 21, O2 saturation 100% on room air with a temperature of 97.6. HEENT: The patient is atraumatic, normocephalic. PERRLA. Nonicteric sclerae. Extraocular movements are intact. No nystagmus noted. Oral mucosa is moist. Tongue is midline. Neck is supple, nontender. No JVD noted. No carotid bruit auscultated. Cardiovascular: S1, S2 present. No murmurs, gallops, or rubs noted. Rate and rhythm are regular. Lungs are clear bilaterally to auscultation with no wheezing, rhonchi, or rales. She has good air entry. Abdomen is soft, nontender, and nondistended. Positive bowel sounds in all 4 quadrants. No organomegaly noted. is deferred. Musculoskeletal: There is no clubbing, no cyanosis, no edema. She has +2 distal pulses palpable. Gross motor and sensation are intact. She has full range of motion and no gait abnormalities. Neurologic: Cras are equal upper extremities and lower extremities and she exhibits no current focal deficits. DIAGNOSTIC STUDIES/LAB DATA: WBCs 6.4, RBCs 4.73, hemoglobin 12.3, hematocrit 39 , platelets 244. Sodium 138, potassium 4.0, chloride 110, CO2 16, BUN 8, creatinine 0.97, GFR is 81.0, glucose 87, calcium 9.0, magnesium 1.9. Total bilirubin 0.40, AST 18, ALT 17, alk phos 52. Creatinine kinase 143, CK-MB is 1.2. Troponin is negative at 0.00 and 0.01. BNP 37, total protein 5.7, albumin 3.9, globulin 1.8, albumin-globulin ratio 2.2, TSH is 1.12, beta quant is 0.60. Urinalysis shows no acute infective process. INR is 0.90. Imaging: As noted above. CT, CTA and MRI were all normal. FOLLOWUPS: Per the recommendations of Neurology, the patient will need a hypercoagulable workup, transesophageal echocardiogram, and loop recorder insertion. These can be done as an outpatient. We recommend that the patient go see Dr. Sanchez within the next week. Dr. Sanchez can refer the patient to Cardiology for the KENA and loop recorder and then start hypercoagulability workup as an outpatient. Again, she is being discharged on aspirin only. She is to follow up with Dr. Matthew Reyez in 2 to 3 weeks. Follow up with primary care. We realized lipid panel was not obtained while the patient was inpatient. We recommend lipid panel to evaluate need for statin therapy as an outpatient and please have those results also sent to Dr. Reyez. DISPOSITION: The patient was discharged in stable condition. All questions were answered. The patient stated understanding of her discharge instructions and followups. TIME SPENT: Approximately 40 minutes interfacing with the patient, planning discharge plan of care. JONATAN DUONG NP [id number]/CPS #: [id number] CHARLEEN
--- NOTE | 2018-08-03 03:45 | PN ---
NEUROLOGICAL FOLLOWUP NOTE: DATE OF SERVICE: 08/02/18 - ROOM #445 HISTORY: Gera has had complete return of left-sided strength without any other symptoms. I discussed with her that there may have been some stress from having the symptoms that could have complicated the picture. She feel strongly that she was clearly weak not under stress and is back to normal now. She has no acute complaints at this point. MEDICATIONS: Include: 1. Aspirin. 2. Ventolin. She also has a drug-eluting IUD which had estrogen and this has been stopped. PHYSICAL EXAMINATION: Temperature 97.6, pulse 70, respirations 21, blood pressure 123/65. She is alert and oriented with normal speech and comprehension. Cranial nerves II through XII intact. Motor exam revealed normal tone and strength. No pronator drift. Sensation intact to light touch. Chest: Clear. Cardiovascular: Regular rate and rhythm. Abdomen: Soft with positive bowel sounds. Her MRI scan is normal. Her CTA was as before. Her transthoracic echo with bubble study showed no source of clot. ASSESSMENT AND PLAN: I discussed with her and Cathie Moran that her history and symptoms are compatible with diagnosis of transient ischemic attack, whether there is or not some functional component in addition to this is hard to be sure about and to go on to be concerned that this was a transient ischemic attack. I discussed that it is possible that the estrogen from her IUD was triggering stroke- like symptoms that the and she should clearly not be on estrogen containing compounds in the future, but other causes of stroke need to be certainly ruled out including hypercoagulable workup and a loop recorder workup and I will be seeing her in followup. For this the hospitalist will order both testing and she will be on aspirin. Her labs were significant for sickle cell screening being negative, normal TSH, negative beta- hCG. She needs LDL. Unsure if fasting lipids being done as well. Thank you for sharing her case. [id number]/[facility] #: [id number] CHARLEEN
== END 2018-08-02 17:10 | disposition home or self-care (01) ==
LOC: ED 10:38 → MED 15:10 → MEDTELE 17:14
PROVIDERS: ADMIT Internal Medicine; ATTEND Student in an Organized Health Care Education/Training Program
DX: R07.89 Other chest pain (principal); J45.909 Unspecified asthma, uncomplicated; Z79.82 Long term (current) use of aspirin; R20.0 Anesthesia of skin; R07.9 Chest pain, unspecified; Z88.0 Allergy status to penicillin; Z97.5 Presence of (intrauterine) contraceptive device
CPT/HCPCS: 36415; 70450; 70496; 70498; 70551; 71045; 80053; 81003; 82550; 82553; 83036; 83605; 83735; 83880; 84443; 84484; 84702; 85025; 85610; 85660; 93005; 93306; 96361; 96372; 99285; A9270-GY; G0378; J1650; Q9967